=== PATIENT | male | born 1970 | race African-American/Black ===

== ENCOUNTER 2017-06-29 12:58 | Emergency (ER) | payer OTHER ==
[~2017-06-29] VITALS: Ht 172.7 cm; Wt 88.5 kg
[2017-06-29 13:36] VITALS: BP 122/84
--- NOTE | 2017-06-29 13:40 | PHYS DOC ---
Past History Past Medical History: Hypertension Past Surgical History: Other Alcohol Use: Occasionally Drug Use: None Adult General Chief Complaint Chief Complaint: HEADACHE HPI HPI Patient is a 46-year-old male in good general health who presents with one and half days of nasal and head congestion, headache behind his eyes and over his forehead. Runny nose, postnasal drainage, stuffy nose. He took some over-the- counter cold medicine but was unsure what to take because he has high blood pressure. He didn't know if he could take Aleve along with the cold medicine. He does Take one antihypertensive and one diuretic, cannot remember the name of them that it might be Diovan. Review of Systems Review of Systems Constitutional: He has felt a bit achy and feverish HENT: As in history of present illness Respiratory: Denies cough or shortness of breath [] Allergies Allergies Allergies Coded Allergies Type Severity Reaction Last Updated Verified No Known Drug Allergies 06/29/17 No Physical Exam Physical Exam Constitutional: Well developed, well nourished, no acute distress, non-toxic appearance. Alert, mentating normally, no dyspnea, warm and dry. HENT: Normocephalic, atraumatic, bilateral external ears normal, oropharynx moist, no oral exudates, tonsils not enlarged, no tonsillar erythema or exudates. Nasal stuffiness and he is sniffling. Eyes: conjunctiva normal, no discharge. [] Neck: Normal range of motion, no stridor. [] Cardiovascular:Heart rate regular rhythm, no murmur [] Lungs & Thorax: Bilateral breath sounds clear to auscultation [] Skin: Warm, dry, no erythema, no rash. [] Extremities: No tenderness, no cyanosis, no clubbing, ROM intact, no edema. [] Neurologic: Alert and oriented X 3, normal motor function, normal sensory function, no focal deficits noted. [] Current Patient Data Vital Signs Vital Signs Date Time Temp Pulse Resp B/P (MAP) Pulse Ox O2 Delivery O2 Flow Rate FiO2 06/29/17 13:05 98.2 72 12 97 Room Air EKG EKG [] Radiology/Procedures Radiology/Procedures [] Course & Med Decision Making Course & Med Decision Making Pertinent Labs and Imaging studies reviewed. (See chart for details) 46-year-old male with upper respiratory symptoms. We discussed what he can safely take for symptomatic treatment. See instructions for plan. [] Dragon Disclaimer Dragon Disclaimer This chart was dictated in whole or in part using Voice Recognition software in a busy, high-work load, and often noisy Emergency Department environment. It may contain unintended and wholly unrecognized errors or omissions. Departure Departure: Impression: Primary Impression: Viral upper respiratory infection Disposition: HOME, SELF-CARE Condition: STABLE Patient Instructions: Upper Respiratory Infection, Adult, [id number] Additional Instructions: For headache, aches and pains, you may take Aleve, Tylenol, or ibuprofen. For congestion, you may use a decongestant pill such as Sudafed or a decongestant spray such as Afrin. Decongestants may raise your blood pressure a little bit, temporarily, but they are safe with well-controlled hypertension. For "runny symptoms" such as runny nose and postnasal drainage, use an antihistamine such as diphenhydramine (Benadryl), or chlorpheniramine, which is the antihistamine Coricidin. You may combine pixg-cjr-[id number] pain medicine, skbt-dik-mxtoise decongestant, and pmia-kcp-lektofu antihistamine and take them all at once for cold symptoms. Be sure to read the labels because some products have more than one ingredient and you may not need to take additional medications if you have one of those products. OBED RIZO MD Jun 29, 2017 13:40
== END 2017-06-29 13:44 | disposition home or self-care (01) ==
LOC: ER 12:58
DX: J06.9 Acute upper respiratory infection, unspecified (principal); I10 Essential (primary) hypertension
CPT/HCPCS: 99281

== ENCOUNTER 2018-03-17 16:40 | Emergency (ER) | payer OTHER ==
[~2018-03-17] VITALS: Ht 172.7 cm; Wt 86.6 kg
[2018-03-17 16:50] VITALS: BP 116/79
--- NOTE | 2018-03-17 17:10 | PHYS DOC ---
Past History Past Medical History: Hypertension Past Surgical History: Other Alcohol Use: Occasionally Drug Use: None Adult General Chief Complaint Chief Complaint: SKIN PROBLEM HPI HPI 47-year-old male presents with rash on his right thigh. The patient had a cut on his leg that was healing. He put a brace over top of the area for protection and today noticed that he has an erythematous rash with multiple papules. It is warm to the touch. Patient denies any fever or chills. He does not have a history of skin infections as far as he knows. He has no other complaints at this time. Review of Systems Review of Systems Constitutional: Denies fever or chills [] Eyes: Denies change in visual acuity, redness, or eye pain [] HENT: Denies nasal congestion or sore throat [] Respiratory: Denies cough or shortness of breath [] Cardiovascular: No additional information not addressed in HPI [] GI: Denies abdominal pain, nausea, vomiting, bloody stools or diarrhea [] : Denies dysuria or hematuria [] Musculoskeletal: Denies back pain or joint pain [] Integument: Rash on right thigh Neurologic: Denies headache, focal weakness or sensory changes [] Endocrine: Denies polyuria or polydipsia [] All other systems were reviewed and found to be within normal limits, except as documented in this note. Allergies Allergies Allergies Coded Allergies Type Severity Reaction Last Updated Verified No Known Drug Allergies 03/17/18 No Physical Exam Physical Exam Constitutional: Well developed, well nourished, no acute distress, non-toxic appearance. [] HENT: Normocephalic, atraumatic, bilateral external ears normal, oropharynx moist, no oral exudates, nose normal. [] Eyes: PERRLA, EOMI, conjunctiva normal, no discharge. [] Neck: Normal range of motion, no tenderness, supple, no stridor. [] Cardiovascular:Heart rate regular rhythm, no murmur [] Lungs & Thorax: Bilateral breath sounds clear to auscultation [] Abdomen: Bowel sounds normal, soft, no tenderness, no masses, no pulsatile masses. [] Skin: Warm, erythematous rash with multiple pustules on the right thigh consistent with cellulitis. The area is roughly 8 cm x 8 cm. No central area of fluctuation or abscess.[] Back: No tenderness, no CVA tenderness. [] Extremities: No tenderness, no cyanosis, no clubbing, ROM intact, no edema. [] Neurologic: Alert and oriented X 3, normal motor function, normal sensory function, no focal deficits noted. [] Psychologic: Affect normal, judgement normal, mood normal. [] Current Patient Data Vital Signs Vital Signs Date Time Temp Pulse Resp B/P (MAP) Pulse Ox O2 Delivery O2 Flow Rate FiO2 03/17/18 16:50 97.9 56 16 97 Room Air EKG EKG [] Radiology/Procedures Radiology/Procedures [] Course & Med Decision Making Course & Med Decision Making Pertinent Labs and Imaging studies reviewed. (See chart for details) The patient's rash looks to be consistent with cellulitis. I will treat him with Keflex 1 g twice a day for 7 days. [] Dragon Disclaimer Dragon Disclaimer This electronic medical record was generated, in whole or in part, using a voice recognition dictation system. Departure Departure: Referrals: FRANCIS AGUILAR DO (PCP) JO BALDERAS DO March 17, 2018 17:10
[2018-03-17] MEDS ORDERED: CEPH-264 PO (17:12)
== END 2018-03-17 17:17 | disposition home or self-care (01) ==
LOC: ER 16:40
DX: L03.115 Cellulitis of right lower limb (principal); I10 Essential (primary) hypertension
CPT/HCPCS: 99283